=== PATIENT | female | born 1955 | race Two or more races ===

== ENCOUNTER → 2024-11-03 | Outpatient (CLI) | payer MEDICARE, MEDICAID, SELFPAY ==
--- NOTE | 2024-11-03 10:00 | XR_ITS ---
Examination: CT abdomen with intravenous contrast CT pelvis with intravenous contrast 2-D coronal reconstructions 2-D sagittal reconstructions Date and time of exam:November 03, 2024 at 1120 hours INDICATIONS: Generalized abdominal pain beginning one year ago. CTDI: vol (mGy) 19.3 DLP: (mGycm) 599 Technique: Multiple axial sections of the abdomen and pelvis have been obtained. 64 slice high-resolution scanner used. 3 mm axial sections have been obtained, post intravenous injection 60 cc Isovue-370, also dilute Gastrografin 30 cc 2-D sagittal, coronal reconstructions obtained. Low dose protocols were performed. One or more of the following dose reduction techniques were used; automated exposure control, adjustment of the mA and/or KV according to patient size, use of iterative reconstruction technique. Findings: Subtle parenchymal disease in both lower lung zones, consider scarring versus mild pneumonia 10 mm right lobe liver cyst No biliary tract dilatation Suspicious for 1 mm gallstone Spleen is not enlarged Fatty infiltration throughout the pancreas No adrenal mass No renal or ureteral calculi, no hydronephrosis Aorta normal size Normal appendix No bowel obstruction No diverticulitis or nonspecific colitis enteritis pattern Atrophic anteverted uterus No adnexal mass Urinary bladder intact Prominent osteopenia with advanced disc narrowing posteriorly L5-S1 Moderate narrowing hip joints IMPRESSION: Recommend PA lateral chest follow-up to assess parenchymal disease in the lower lung zones Recommend hepatobiliary sonography to confirm cholelithiasis Normal appendix No bowel obstruction diverticulitis or nonspecific colitis enteritis Significant degenerative disc disease L5-S1
== END | disposition home or self-care (01) ==
PROVIDERS: PCP Family Medicine; Referring Provider Specialist; Visit Provider Specialist
DX: M51.379 Other intervertebral disc degeneration, lumbosacral region without mention of lumbar back pain or lower extremity pain (principal)
CPT/HCPCS: 74177; A4649; Q9963; Q9967

== ENCOUNTER 2025-07-01 11:05 | Day surgery (SDC) | payer MEDICARE, MEDICAID, SELFPAY ==
[2025-06-30 13:54] VITALS: BMI 30.7
[2025-07-01] VITALS (8 sets, daily range): BP systolic 140–183; BP diastolic 70–103; PULSE 55–69; RESP 14–25; TEMP -12.7–36.3; O2SAT 91–100; BMI 30.3
[2025-07-01] MEDS: SODIUM CHLORIDE RT SOL 0.9% 3 ML NEBU INH (12:03)
[2025-07-01] MEDS: ALBUTEROL RT 2.5 MG/0.5 ML NEBU INH (12:03)
[2025-07-01] MEDS: SODIUM CHLORIDE 0.9% 500 ML 500 ML 20 ML IV (12:26)
[2025-07-01] MEDS: MIDAZOLAM INJ 1 MG/ML VIAL 2 ML (ASD USE ONLY) 2 MG IVP (12:28)
[2025-07-01] MEDS: fentaNYL CIT INJ 50 mCg/ML AMP 2ML (ASD USE ONLY) IVP (12:28)
== END 2025-07-01 13:15 | disposition home or self-care (01) ==
PROVIDERS: PCP Family Medicine; Referring Provider Specialist; Visit Provider Specialist
PROC: (CPT 43239; principal; 2025-07-01 11:30)
DX: K29.50 Unspecified chronic gastritis without bleeding (principal); K22.10 Ulcer of esophagus without bleeding; K31.89 Other diseases of stomach and duodenum
CPT/HCPCS: 43239; A4649; J1200; J2250; J3010; J7999

== ENCOUNTER → 2025-07-27 | Outpatient (CLI) | payer MEDICARE, MEDICAID, SELFPAY ==
--- NOTE | 2025-07-27 10:28 | XR_ITS ---
Examination: Abdomen AP single view Technique: AP portable supine abdomen, single view Exam date and time: July 27, 2025, 1039 hours INDICATIONS: Abdominal discomfort 5 years FINDINGS: Large amount of stool throughout the colon Surgical clips upper right abdomen No obstruction No free air IMPRESSION: Large amounts of stool throughout the colon
[2025-07-27 11:37] LABS: Collection Type, Urine Clean Catch; RBC,Urine 0 /hpf (0-3); WBC,Urine 0 /hpf (0-5)
[2025-07-27 12:12] LABS: Basophils # (Auto) 0.1 Thou/mm3 (0.0-0.2); Basophils % (Auto) 1 % (0-2.5); Eosinophils # (Auto) 0.2 Thou/mm3 (0.0-0.5); Eosinophils % (Auto) 3 % (0-10); Hematocrit 44.2 % (36.0-46.0); Hemoglobin 14.0 g/dL (12.0-16.0); Immature Granulocytes Auto 0.01 Thou/mm3 (0.00-0.00); Lymphocytes # (Auto) 2.5 Thou/mm3 (1.0-4.8); Lymphocytes % (Auto) 34 % (10-50); Mean Corpuscular HGB Conc 31.7 g/dl (31.0-37.0); Mean Corpuscular Hemoglobin 28.5 pg (25.0-35.0); Mean Corpuscular Volume 90 fL (80-100); Monocytes # (Auto) 0.7 Thou/mm3 (0.0-0.8); Monocytes % (Auto) 10 % (0-12); Neutrophils # (Auto) 3.7 Thou/mm3 (1.8-7.7); Neutrophils % (Auto) 52 % (37-80); Nucleated Red Blood Cell # 0.00 Thou/mm3 (0.00-0.00); Nucleated Red Blood Cell % 0 /100 WBC (0); Platelet Count 230 Thou/mm3 (140-440); RDW Standard Deviation 49.4 fL (36.4-46.3); Red Blood Count 4.92 Miln/mm3 (4.00-5.20); White Blood Count 7.3 Thou/mm3 (3.6-11.0)
[2025-07-27 12:21] LABS: Alanine Aminotransferase 16 U/L (10-49); Albumin, Serum 4.0 gm/dL (3.4-4.8); Albumin/Globulin Ratio 1.1 (1.2-2.2); Alkaline Phosphatase 116 U/L (46-116); Amylase 58 U/L (30-118); Anion Gap 7 (7-16); Aspartate Amino Transferase 19 U/L (0-34); BUN/Creatinine Ratio 13 Ratio (12-20); Bilirubin,Total 1.1 mg/dL (0.3-1.2); Blood Urea Nitrogen 10 mg/dL (9-23); Calcium 9.1 mg/dL (8.3-10.6); Calcium (Corrected) 9.1 mg/dL (8.5-10.1); Carbon Dioxide 30.2 mMol/L (20.0-31.0); Chloride 104 mMol/L (98-107); Creatinine (Component) 0.8 mg/dL (0.6-1.3); Globulin 3.8 gm/dL (2.3-3.5); Glucose 76 mg/dL (74-106); Lipase 27 U/L (12-53); Osmolality,Calculated 279 (275-295); Potassium 4.2 mMol/L (3.4-5.1); Sodium 141 mMol/L (136-145); Total Protein 7.8 gm/dL (5.7-8.2); eGFR > 60 See Note
[2025-07-27 12:37] LABS: Bilirubin,Urine Negative (Negative); Blood,Urine Negative (Negative); Clarity,Urine Clear (Clear/Hazy); Color,Urine Colorless (Lt Yel-Yel); Glucose, Urine Negative (Negative); Ketones,Urine Negative (Negative); Leukocyte Esterase,Urine Negative (Negative); Nitrite,Urine Negative (Negative); PH,Urine 6.5 (5.0-7.0); Protein,Urine Negative (Neg - Trace); Specific Gravity,Urine 1.005 (1.001-1.035); Squamous Epithelial Cell,Urine < 1 /hpf (0-5); Urobilinogen,Urine Negative mg/dL (0.0-1.0)
== END | disposition home or self-care (01) ==
LOC: CDIM 10:16 → COPL 10:52
PROVIDERS: PCP Family Medicine; Referring Provider Specialist; Visit Provider Radiology Diagnostic Radiology
DX: K59.00 Constipation, unspecified (principal); R10.13 Epigastric pain; R10.30 Lower abdominal pain, unspecified; E78.9 Disorder of lipoprotein metabolism, unspecified
CPT/HCPCS: 36415; 74018; 80053; 81001; 82150; 83690; 85025